=== PATIENT | female | born 1960 | race Caucasian/White ===

== ENCOUNTER 2025-03-23 13:53 | Outpatient (CLI) | payer OTHER, SELFPAY ==
--- NOTE | ~2025-03-23 | MM_ITS ---
EXAMINATION: MM screening oliver BI w damian HISTORY: Screening TECHNIQUE: Craniocaudal and mediolateral oblique 3-D tomosynthesis images were obtained and synthetic 2-D images were generated. CAD analysis was submitted and interpreted. COMPARISON: No prior mammogram is available for comparison at this institution. BREAST PARENCHYMAL COMPOSITION: Not dense: There are scattered areas of fibroglandular density. FINDINGS: There is no evidence of suspicious mass, calcification, or architectural distortion to sugg est malignancy in either breast. There has been no suspicious interval change. IMPRESSION: 1. No mammographic evidence of malignancy. 2. Recommend routine screening mammography in one year. BI-RADS Category 1: Negative Reviewed, dictated and finalized at location A.
--- OUTSIDE RECORDS SUMMARY | 2025-03-23 16:00 | XMS_ITS ---
Author Organization [facility] Address [address] [place] [address] Care Team Providers Care Space Physicist Name Role Phone Radha Hull Primary Care Provider Alexsandra Arreaga [phone] Allergies No Known Allergies REASON FOR VISIT 3 Month Psych F/U & Med Refill Medications Medication SIG (Take, Route, Frequency, Duration) Notes Start Date End Date Status Vitamin D (Ergocalciferol) 96908 UNIT 1 capsule Orally once weekly for 30 days 11/05/2024 Active traZODone HCl 50 MG 1 tablet at bedtime as needed Orally Once a day for 30 days Active Lisinopril 5 MG 1 tablet Orally Once a day for 30 days Please mail to patients home Active Sertraline HCl 100 MG 2 capsule Orally Once a day for 30 days Active Latuda 20 MG 1 tablet in the evening with food Orally Once a day for 30 days Active Social History Sex Assigned At : Social History Observation Description Sex Assigned At Female Encounters Encounter Location Date Provider Diagnosis [address] [place] [address] 03/12/2025 Alexsandra Arreaga Bipolar 1 disorder F31.9 and KATIE (generalized anxiety disorder) F41.1 Assessments Encounter Date Diagnosis (ICD Code) Assessment Notes Treatment Notes Treatment Clinical Notes Section Notes 03/12/2025 Bipolar 1 disorder (ICD-10 - F31.9) Continue current medications. Continue services as scheduled. Labs completed recently. May self-administer medications or be administered own oral medications per [facility] protocols. Provided informed consent with understanding of side effects, adverse effects, risks and benefits as well as alternative treatments as previously discussed and with the above recommended medications & other aspects of the treatment program. Agrees to return sooner if symptoms worsen or suicidal or homicidal ideations occur. 03/12/2025 KATIE (generalized anxiety disorder) (ICD-10 - F41.1) Plan Of Treatment Medication Medication Name Sig Start Date Stop Date Notes Sertraline HCl 100 MG 2 capsule Orally O nce a day for 30 days Latuda 20 MG 1 tablet in the even ing with food Orally Once a day for 30 days Treatment Notes Assessment Notes Bipolar 1 disorder Continue current med ications. Continue services as scheduled. Labs completed recently. May self-administer medications or be administered own oral medications per [facility] protocols. Provided informed consent with understanding of side effects, adverse effects, risks and benefits as well as alternative treatments as previously discussed and with the above recommended medications & other aspects of the treatment program. Agrees to return sooner if symptoms worsen or suicidal or homicidal ideations occur. Next Appt Details Follow Up: 3 Months, Reason: Medication management - can be telehealth appt. Progress Notes * Kate MURCIAB: [birth year] (64 yo F)Acc No.[id number]:03/12/2025 Patient: Matthew FOSS Provider: Norma Arreaga DNP, PMHNP-BC, BOX BUILDER :1960 A ge:64 Y S ex:Female Date:03/12/2025 Address:[address] [place], [place] [id number] Pcp:Radha Hull Subjective: * Chief Complaints: * 3 Month Psych F/U & Med Refill * HPI: I nterim History: Emergency room visit N o. Was hospitalized N o. D epression Screening: PHQ-9 L ittle interest or pleasure in doing things?Not at all F eeling down, depressed, or hopeless N ot at all T rouble falling or staying asleep, or sleeping too much N ot at all F eeling tired or having little energy N ot at all P oor appetite or overeating N ot at all F eeling bad about yourself or that you are a failure, or have let yourself or your family down N ot at all T rouble concentrating on things, such as reading the newspaper or watching television N ot at all M oving or speaking so slowly that other people could have noticed; or the opposite, being so fidgety or restless that you have been moving around a lot more than usual N ot at all T houghts that you would be better off or of hurting yourself in some way N ot at all T otal Score 0 Intervention D epression Screening Findings N egative F ollow-Up for Depression N o Referral necessary, patient involved in behavioral health treatment, Referred to Behavioral Health, Prescribed psychotropic medications S creening: Phillips Suicide Severity Rating Scale (LF) D o you want to initiate with S creener form 1 . Wish to be : Have you wished you were or wished you could go to sleep and not wake up? N o 2 . Suicidal Thoughts: Have you actually had any thoughts of killing yourself? N o 6 . Suicide Behavior Question: Have you ever done anything,started to do anything, or prepared to end your life? N o I nterpretation: L ow Risk P reventative Health and Wellness follow-up: Action Plans for Clinical Quality Measures: B reast Cancer Screening: N ot addressed during this visit. See notes for details. C ervical Cancer Screening: N ot addressed during this visit. See notes for details. C olorectal Cancer Screening: N ot addressed during this visit. See notes for details. H IV Screening: N ot addressed during this visit. See notes for details. . P sych F/U: Patient presents for psychiatric follow-up visit. Changes since last visit?: S tates things have been going good. Getting out more. Things are looking up . Medications are working well. . Coping skills? E xercise and staying busy. Senior center.?. Effectiveness of medications: Y es, patient reports they are effective. Medication Adherence: R eports taking medications as prescribed. Side effects to medications?: D enies side effects to medications. Sleep: A ppropriate sleep. Appetite A ppropriate appetite. Depression (10 = most depressed) D enies. Anxiety (10 = most anxious) D enies. Anger/Irritability (10 is highest): 0 /10. Suicidal ideation: D enies suicidal ideation.. Homicidal ideation: D enies homicidal ideation.. Hallucinations D enies hallucinations, Denies Paranoia.? Medical concerns or hospitalizations? N o changes. . ? Therapy? N o. Goals: C ontinued- Being more active and meeting people. Has been walking and going to senior center. . Are you satisfied with the medication? Y es. A bnormal Involuntary Movement Scale: Denies : Facial and Oral Movements M uscles of Facial Expression 0 - None L ips and Perioral Area 0 - None J aw 0 - None T ongue 0 - None Denies : Extremity Movements U pper (arms, wrists, hands, fingers) 0 - None L ower (legs, knees, ankles, toes) 0 - None Denies : Trunk Movements N megan, Shoulders and hips 0 - None Denies : Global Judgement S everity of abnormal movements overall 0 - None I ncapacitation due to abnormal movements 0 - None P atient's awareness of abnormal movements?0- No Awareness Denies : Dental Status C urrent problems with teeth and/or dentures?No A re dentures usually worn? N o E ndentia N o D o movements disappear with sleep? N o Denies : Subjective Experience . * ROS: P sych ROS: Constitutional D enies. E yes D enies. E ars/Nose/Mouth/Throat D enies. R espiratory D enies. A llergic/Immunologic D enies.?Cardiovascular D enies. G I D enies. G U D enies. M usculoskeletal R eports, S ome aches from restarting exercise.. N eurological D enies. I ntegumentary?Denies. E ndocrine D enies. H ematological/Lymphatic D enies. P sych D enies AH/VH,Reports anxiety,Reports depression, Denies SI/HI. * Medical History: * Surgical History: n megan surgery leg surgery hysterectomy 1992 * Hospitalization/Major Diagno stic Procedure: - complication 1992 * Family History: F ather: alive, Heart problems. M other: alive. 1 brother(s) - healthy. 1 son(s) , 2 daughter(s) - healthy. . * Social History: P rimary Social History: L iving Arrangement L iving Arrangement: Dependent Living , Is this a supportive environment? Yes .. Alcohol Use A lcohol Use Frequency: M onthly or less Illicit Substance Usage I llicit Substance Usage: N o Employment Status E mployment Status: U nemployed Single Question Alcohol Screening H ow may times in the past year have you had (4 for women, or 5 for men) or more drinks in a day? 0 * Medications: T akingtraZODone HCl 50 MG Tablet 1 tablet at bedtime as needed Orally Once a day Lisinopril 5 MG Tablet 1 tablet Orally Once a day , Notes to Pharmacist: Please mail to patients homeVitamin D (Ergocalciferol) 31490 UNIT Capsule 1 capsule Orally once weekly Latuda 20 MG Tablet 1 tablet in the evening with food Orally Once a day Sertraline HCl 100 MG Tablet 2 capsule Orally Once a day Medication List reviewed and reconciled with the patientTaking traZODone HCl 50 MG Tablet 1 tablet at bedtime as needed Orally Once a day Taking Lisinopril 5 MG Tablet 1 tablet Orally Once a day , Notes to Pharmacist: Please mail to patients homeTaking Vitamin D (Ergocalciferol) 59645 UNIT Capsule 1 capsule Orally once weekly Taking Latuda 20 MG Tablet 1 tablet in the evening with food Orally Once a day Taking Sertraline HCl 100 MG Tablet 2 capsule Orally Once a day Medication List reviewed and reconciled with the patient * Allergies: N .K.D.A.no[Allergies Verified] Objective: * Vitals: * Examination: M ental Status Exam: SENSORIUM AND COGNITION Alert , Oriented to Person , Oriented to Place , Oriented to Time , Oriented to Situation. ATTENTION AND CONCENTRATION N o deficits. ATTITUDE AND BEHAVIOR C ooperative , Receptive. MEMORY I mmediate , Recent , Remote. AFFECT B road/Full. MOOD E uthymic. SPEECH QUANTITY A ppropriate. SPEECH QUALITY S pontaneous , Fluent , Appropriate volume.? THOUGHT PROCESS C oherent and goal directed. THOUGHT CONTENT A ppropriate - WNL , No evidence of delusional content , No reports paranoia. LANGUAGE A ppropriate- WNL. SUICIDAL IDEATION D enies suicidal ideation. HOMICIDAL IDEATION D enies homicidal ideation. HALLUCINATIONS D enies hallucinations. INSIGHT F air. JUDGMENT F air. FUND OF KNOWLEDGE F air. ABILITY TO PARTICIPATE IN TREATMENT M oderate. WILLINGNESS TO PARTICIPATE IN TREATMENT M oderate. SIGNIFICANT FINDINGS REGARDING MENTAL STATUS N one. ? Assessment: * Assessment: 1. B ipolar 1 disorder - F31.9 (Primary) 2 . G AD (generalized anxiety disorder) - F41.1 Plan: * Treatment: * Procedure Codes: * Follow Up: 3 Months (Reason: Medication management - can be telehealth appt.) * * Sign off status: Completed true * Provider: Norma Arreaga, NILA, PMHNP-, BOX BUILDER Date: 0 03/12/2025 Generated for Printing/Faxing/eTransmitting on: 0 03/23/2025 04:00 PM CDT History and Physical Notes * HPI (History of Present Illness) Category Sub-Category Detail Notes Category Not es Interim History Was hospitalized No Emergency room visit No Depression Screening PHQ-9 Little inte rest or pleasure in doing things: Not at all Feeling down, depressed, or hopeless: No t at all Trouble falling or staying asleep, or sl eeping too much: Not at all Feeling tired or having little energy: N ot at all Poor appetite or overeating: Not at all Feeling bad about yourself o r that you are a failure, or have let yourself or your family down: Not at all Trouble concentrating on thi ngs, such as reading the newspaper or watching television: Not at all Moving or speaking so slowly that other people could have noticed; or the opposite, being so fidgety or restless that you have been moving around a lot more than usual: Not at all Thoughts that you would be b stevan off or of hurting yourself in some way: Not at all Total Score: 0 Intervention Depression Screening Findings: N egative Follow-Up for Depression: No Referral necessary, patient involved in behavioral health treatment, Referred to Behavioral Health, Prescribed psychotropic medications Abnormal Involuntary Movement Scale Facial and Oral Movements Muscles of Facial Expression: 0- None Lips and Perioral Area: 0- None Jaw: 0- None Tongue: 0- None Extremity Movements Upper (arms, wrists, hands, fingers): 0- None Lower (legs, knees, ankles, toes): 0- No ne Trunk Movements Neck, Shoulders and hips: 0- Non e Global Judgement Severity of abnormal movements overall: 0- None Incapacitation due to abnormal movements : 0- None Patient's awareness of abnormal movement s: 0- No Awareness Dental Status Current problems with teeth and/ or dentures: No Are dentures usually worn?: No Endentia: No Do movements disappear with sleep?: No Subjective Experience Psych F/U Changes since last visit?: State s things have been going good. Getting out more. Things are looking up . Medications are working well. Effectiveness of medications: Yes, patie nt reports they are effective Medication Adherence: Reports taking med ications as prescribed Side effects to medications?: Denies robin e effects to medications Goals: Continued- Being mor e active and meeting people. Has been walking and going to senior center. Coping skills? Exercise and staying busy. Senior center. Sleep: Appropriate sleep Appetite Appropriate appetite Depression (10 = most depressed) Denies Anxiety (10 = most anxious) Denies Anger/Irritability (10 is highest): 0/10 Suicidal ideation: Denies suicidal idea tion. Homicidal ideation: Denies homicidal emir ation. Hallucinations Denies hallucination s, Denies Paranoia Medical concerns or hospitalizations? No changes. Therapy? No Are you satisfied with the medication? Y es Screening Phillips Suicide Sev erity Rating Scale (LF) Do you want to initiate with: Screener form 1. Wish to be : Have you wished you were or wished you could go to sleep and not wake up?: No 2. Suicidal Thoughts: Have you actually had any thoughts of killing yourself?: No 6. Suicide Behavior Question: Have you ever done anything,started to do anything, or prepared to end your life?: No Interpretation:: Low Risk Preventative Health and Wellness follow-up Action Plans for Clinical Quality Measures: Breast Cancer Screening:: Not addressed during this visit. See notes for details. . Cervical Cancer Screening:: Not addressed during this visit. See notes for details. Colorectal Cancer Screening: : Not addressed during this visit. See notes for details. HIV Screening:: Not addressed during thi s visit. See notes for details. Examination Category Sub-Category Detail Notes Category Not es Mental Status Exam SENSORIUM AND COGNITION Alert , Oriented to Person , Oriented to Place , Oriented to Time , Oriented to Situation ATTENTION AND CONCENTRATION No deficits ATTITUDE AND BEHAVIOR Cooperative , Rece ptive MEMORY Immediate , Recent , Remote AFFECT Broad/Full MOOD Euthymic SPEECH QUANTITY Appropriate SPEECH QUALITY Spontaneous , Fluent , Appropriate volume THOUGHT PROCESS Coherent and goal di rected THOUGHT CONTENT Appropriate - WNL , No evidence of delusional content , No reports paranoia SUICIDAL IDEATION Denies suicidal idea tion HOMICIDAL IDEATION Denies homicidal emir ation HALLUCINATIONS Denies hallucination s INSIGHT Fair JUDGMENT Fair FUND OF KNOWLEDGE Fair ABILITY TO PARTICIPATE IN TREATMENT Mode rate WILLINGNESS TO PARTICIPATE IN TREATMENT Moderate SIGNIFICANT FINDINGS REGARDI NG MENTAL STATUS None LANGUAGE Appropriate- WNL
--- OUTSIDE RECORDS SUMMARY | 2025-03-23 16:00 | XMS_ITS | Patient Health Record ---
Author Organization [facility] Address [address] [place] [address] Care Team Providers Care Panel Laminator Name Role Phone Radha Hull Primary Care Provider Alexsandra Arreaga Unavailable [phone] Kelton Norwood Unavailable Allergies No Known Allergies Results Component Value Reference Range Notes CMP 14 Comprehensive Metabol ic Panel* Reviewed date:11/05/2024 12:03:19 PM Interpretation:Abnormal Performing Lab:[facility], [address] [facility], Phone - [phone], Director - Ida Notes/Report: Glucose 117 70-99 mg/dL BUN 15 8-27 mg/dL Creatinine 0.74 0.57-1.00 mg/dL eGFR 91 >59 mL/min/1.73 BUN/Creatinine Ratio 20 12-28 Sodium 141 134-144 mmol/L Potassium 5.1 3.5-5.2 mmol/L Chloride 102 96-106 mmol/L Carbon Dioxide, Total 20 20-29 mmol/L Calcium 9.5 8.7-10.3 mg/dL Protein, Total 7.1 6.0-8.5 g/dL Albumin 4.5 3.9-4.9 g/dL Globulin, Total 2.6 1.5-4.5 g/dL Bilirubin, Total 0.8 0.0-1.2 mg/dL Alkaline Phosphatase 84 44-121 IU/L AST (SGOT) 18 0-40 IU/L ALT (SGPT) 19 0-32 IU/L Lipid Panel* Reviewed date:11/05/2024 12:03:18 PM Interpretation:Abnormal Performing Lab:[facility], [address], [place], Phone - [phone], [facility] Notes/Report: Cholesterol, Total 262 100-199 mg/dL Triglycerides 180 0-149 mg/dL HDL Cholesterol 43 >39 mg/dL VLDL Cholesterol Isaiah 34 5-40 mg/dL LDL Chol Calc (NIH) 185 0-99 mg/dL TSH+Free T4* Reviewed date:11/05/2024 12:03:18 PM Interpretation:Normal Performing Lab:[address], Phone - [phone], Director - [facility] Notes/Report: TSH 1.240 0.450-4.500 uIU/mL T4,Free(Direct) 1.20 0.82-1.77 ng/dL Vitamin D, 25-Hydroxy* Reviewed date:11/05/2024 12:03:18 PM Interpretation:Low Performing Lab:[address], Phone - [phone], Director - [facility] Notes/Report: Vitamin D, 25-Hydroxy 18.0 30.0-100.0 ng/mL Vitamin D deficiency has been defined by the Sp[employer] of Medicine and an Endocrine Society practice guideline as a level of serum 25-OH vitamin D less than 20 ng/mL (1,2). The Endocrine Society went on to further define vitamin D insufficiency as a level between 21 and 29 ng/mL (2). 1. IOM ([employer] of Medicine). 2010. Dietary reference intakes for calcium and D. [place]: The National Academies Press. 2. Shukri MF, Keenan NC, Bobby SANDS, et al. Evaluation, treatment, and prevention of vitamin D deficiency: an Endocrine Society clinical practice guideline. JCEM. 2010; 96(7):1911-30. CBC With Differential/Platel et* Reviewed date:11/05/2024 12:03:18 PM Interpretation:High Performing Lab:[address], Phone - [phone], Director - [facility] Notes/Report: WBC 9.1 3.4-10.8 x10E3/uL RBC 5.08 3.77-5.28 x10E6/uL Hemoglobin 15.2 11.1-15.9 g/dL Hematocrit 46.8 34.0-46.6 % MCV 92 79-97 fL MCH 29.9 26.6-33.0 pg MCHC 32.5 31.5-35.7 g/dL RDW 13.0 11.7-15.4 % Platelets 369 150-450 x10E3/uL Neutrophils 63 Not Estab. % Lymphs 28 Not Estab. % Monocytes 7 Not Estab. % Eos 2 Not Estab. % Basos 0 Not Estab. % Neutrophils (Absolute) 5.6 1.4-7.0 x10E3/uL Lymphs (Absolute) 2.6 0.7-3.1 x10E3/uL Monocytes(Absolute) 0.7 0.1-0.9 x10E3/uL Eos (Absolute) 0.2 0.0-0.4 x10E3/uL Baso (Absolute) 0.0 0.0-0.2 x10E3/uL Immature Granulocytes 0 Not Estab. % Immature Grans (Abs) 0.0 0.0-0.1 x10E3/uL Vitamin B12* Reviewed date:11/05/2024 11:59:59 AM Interpretation:Normal Performing Lab:[facility] [place], [address] [facility], Phone - [phone], Director - [facility] Notes/Report: Vitamin B12 510 700-8191 pg/mL Hemoglobin A1c* Reviewed date:11/05/2024 11:59:59 AM Interpretation:Abnormal Performing Lab:[facility] [place], [address] [facility], Phone - [phone], Director - [facility] Notes/Report: Hemoglobin A1c 7.0 4.8-5.6 % . Prediabetes: 5.7 - 6.4 Diabetes: >6.4 Glycemic control for adults with diabetes: <7.0 Reason For Referral Reason Would like to be louie luated for housing. Diagnosis 1 Bipolar 1 disorder ( F31.9) Referral Organization [facility] Referring Provider First Name Alexsandra Referring Provider Last Name Gibson Referring Provider Speciality Psychiatry Referred Provider Specialty [facility]al [facility] Clinical Notes Ryann White 11/05/2024 12:44:27 PM >HN and client discussed filling out the [facility] applications. Client also applied on her own for medicaid and insurance through the [facility]. I informed the client we could look into the outcome of this online application to see if she was approved. Client was also told informed that the HN could see if the department at [place] who assists with insurance through the state could assist us. Client and HN plan to address this early net week.Christopher Kristina L 11/09/2024 02:51:29 PM >HN emailed the [facility] department to see if there was any information to share regarding her insurance through [facility]., Ryann White 11/17/2024 09:41:06 AM >Matthew called the HN and from that phone call, an appointment was scheduled with the client for at 10am., Ryann White 11/19/2024 03:11:08 PM > Application for [facility] filled out and submitted on 11-19-24. Referral Priority Routine Medications Medication SIG (Take, Route, Frequency, Duration) Notes Start Date End Date Status traZODone HCl 50 MG 1 tablet at [...] Once a day for 30 days Active Vitamin D (Ergocalciferol) 1.25 MG (77311 UT) TAKE 1 CAPSULE BY MOUTH EVERY WEEK for 28 Active Social History Tobacco Use: Social History Observation Description Date Details (start date - stop date) Never Smoker NA - NA Sex Assigned At : Social History Observation Description Sex Assigned At Female Tobacco Control (Standard) Question Answer Notes Tobacco use: Nonsmoker Problems Problem Type SNOMED Code ICD Code Onset Dates Problem Status W/U Status Risk Notes Problem Type II diabetes mellitus without complication (273944802) Diabetes (E11.9) Active confirmed Problem Bipolar 1 disorder (565224747) Bipolar 1 disorder (F31.9) Active confirmed Problem Vitamin D deficiency (53723319) Vitamin D deficiency (E55.9) Active confirmed Problem Generalized anxiety disorder (59870122) KATIE (generalized anxiety disorder) (F41.1) Active confirmed Problem Essential hypertension (28942273) Essential hypertension (I10) Active confirmed Vital Signs Heart Rate 63 /min 11/04/2024 Respiratory Rate 16 /min 11/04/2024 Blood pressure diastolic 82 mm Hg 11/04/2024 Oximetry 96 % 11/04/2024 Height 63 in 11/04/2024 Blood pressure systolic 122 mm Hg 11/04/2024 Weight 213 lbs 11/04/2024 BMI 37.73 kg/m2 11/04/2024 Encounters Encounter Location Date Provider Diagnosis [address] [place] [address] 10/30/2024 Alexsandra Arreaga Nutritional counseling Z71.3 ; Bipolar 1 disorder F31.9 and KATIE (generalized anxiety disorder) F41.[address] [place] [address] 11/04/2024 Radha Hull Nutritional counseling Z71.3 ; Establishing care with new doctor, encounter for Z71.89 ; Bipolar 1 disorder F31.9 ; Screening for breast cancer Z12.39 and Essential hypertension I10 [facility] [address] [address] 11/19/2024 Kelton Norwood [address] [place] [address] 12/08/2024 Alexsandra Arreaga Bipolar 1 disorder F31.9 and KATIE (generalized anxiety disorder) F41.[address] [place] [address] 03/12/2025 Alexsandra Arreaga Bipolar 1 disorder F31.9 and KATIE (generalized anxiety disorder) F41.[address] [facility] [address] 11/05/2024 Radha Hull Vitamin D deficiency E55.9 and Diabetes E11.9 [facility] [address] [place] [address] 01/18/2025 Radha Hull Assessments Encounter Date Diagnosis (ICD Code) Assessment Notes Treatment Notes Treatment Clinical Notes Section Notes 10/30/2024 Bipolar 1 disorder (ICD-10 - F31.9) 10/30/2024 Nutritional counseling (ICD-10 - Z71.3) 11/04/2024 Nutritional counseling (ICD-10 - Z71.3) 11/05/2024 Diabetes (ICD-10 - E11.9) 11/05/2024 Vitamin D deficiency (ICD-10 - E55.9) 12/08/2024 Bipolar 1 disorder (ICD-10 - F31.9) 11/04/2024 Establishing care with new doctor, encounter for (ICD-10 - Z71.89) 03/12/2025 Bipolar 1 disorder (ICD-10 - F31.9) Continue current medications. Continue services as scheduled. Labs completed recently. May self-administer medications or be administered own oral medications per [place] protocols. Provided informed consent with understanding of side effects, adverse effects, risks and benefits as well as alternative treatments as previously discussed and with the above recommended medications & other aspects of the treatment program. Agrees to return sooner if symptoms worsen or suicidal or homicidal ideations occur. 03/12/2025 KATIE (generalized anxiety disorder) (ICD-10 - F41.1) 12/08/2024 KATIE (generalized anxiety disorder) (ICD-10 - F41.1) 11/04/2024 Bipolar 1 disorder (ICD-10 - F31.9) 10/30/2024 KATIE (generalized anxiety disorder) (ICD-10 - F41.1) 11/04/2024 Screening for breast cancer (ICD-10 - Z12.39) 11/04/2024 Essential hypertension (ICD-10 - I10) 12/08/2024 Other Continue curren t medications. Continue services as scheduled. Labs completed recently. May self-administer medications or be administered own oral medications per [facility] protocols. Provided informed consent with understanding of side effects, adverse effects, risks and benefits as well as alternative treatments as previously discussed and with the above recommended medications & other aspects of the treatment program. Agrees to return sooner if symptoms worsen or suicidal or homicidal ideations occur. Plan Of Treatment No Information Insurance Providers Payer Name Payer Address Payer Phone Subscriber Number Group Number Insured Name Patient Relationship to Insured Coverage Start Date Coverage End Date [facility] Att Claims Department [address] [place] [address] [phone] [id number] Matthew Cruz Self - patient is the insured 5 MEDICAID [address] [place] [address] [id number] Arletteiatami roeMatthew Self - patient is the insured 4 5 Medical (General) History Medical History History ICD Code hypertension cervical spinal fusion Surgical History Surgery Date(Month/Year) neck surgery leg surgery hysterectomy 1992 Hospitalization History Reason Date(Month/Year) - complication 1993
--- OUTSIDE RECORDS SUMMARY | 2025-03-23 16:00 | XMS_ITS ---
Author Organization [facility] Address [address] [place] [address] Care Team Providers Care Site Operations Manager Name Role Phone Radha Hull Primary Care Provider [phone] GibsonAlexsandra Unavailable [phone] REASON FOR VISIT VM regarding lab order Social History Sex Assigned At : Social History Observation Description Sex Assigned At Female Encounters Encounter Location Date Provider Diagnosis [facility] [address] [place] [address] 01/18/2025 Radha Hull Plan Of Treatment No Information Progress Notes * Angelo MURCIAiDOB: [birth year] (64 yo F)Acc No.[id number]:01/18/2025 Patient: Matthew FOSS :1960 A ge:64 Y S ex:Female Address:[address] [place] [address], [phone] * true * Date: Generated for Osmar mccollum/Maile/eTransmitting on: 0 03/23/2025 04:00 PM CDT
--- OUTSIDE RECORDS SUMMARY | 2025-03-23 16:00 | XMS_ITS | Continuity of Care Document ---
Author Organization [facility] Address [address] [place] [address] Phone Care Team Providers Care Dance Coach Name Role Phone Naina Campos Unavailable Unavailable Allergies, Adverse Reactions, Alerts Substance Reaction Status Criticality No Known Allergies Active No Inform ation Medications Medication Instructions Dosage Effective Dates (start - stop) Status Comments lisinopril 5 mg tablet take 1 (ONE) tablet by mouth every day for blood pressure - Active Patient will be transitioning to new provider in [facility] Vitamin D2 1,250 mcg (50,000 unit) capsule Take 1 capsule by mouth every Saturday for 8 weeks - Active Please deliver t o patient's house Zoloft 100 mg tablet take 1 tablet by oral route 2 times every day 100 MG - Active Latuda 20 mg tablet take 1 tablet by oral route every day with food (at least 350 calories) 20 MG - Active trazodone 100 mg tablet take 1 tablet by oral route every day at bedtime 100 MG - Active Procedures Procedure Date PREV VISIT, EST, AGE 40-64 ROUTINE VENIPUNCTURE COMPLETE CBC W/AUTO DIFF WBC COMPREHEN METABOLIC PANEL GLYCATED HEMOGLOBIN TEST VITAMIN B-12 ASSAY OF VITAMIN D LIPID PANEL PREV VISIT, NEW, AGE 40-64 ROUTINE VENIPUNCTURE COMPLETE CBC W/AUTO DIFF WBC COMPREHEN METABOLIC PANEL ACUTE HEPATITIS PANEL LIPID PANEL Advance Directives Directive Yes / No Effective Date File Name No Information Encounters Encounter Description Practice Location Reason(s) For Visit Diagnoses Date Provider Providers Copied on Encounter [facility], [address] [place] [address], [id number], tel:[phone] [facility] No Information [address] [place]. [address] [place] [address], [id number] [address] [place] [address], [id number] , [place]. [phone] [facility], [address] [place] [address], [id number], [place] tel:[phone] [facility] No Information 4 [place]. [address] [place] [address], [id number] [address] [place] [address], [id number] , [place]. [phone] [facility], [address] [place] [address], [id number], tel:[phone] [facility] Elevated Blood pressure (chief complaint) Body mass index [BMI] 39.0-39.9, adultType 2 diabetes mellitus without complicationsV itamin D deficiencyHype rtensionPerson consulting for explanation of exam or test findingsHyperc holesterolemia 4 [place]. [address] [place] [address], [id number] [address] [place] [address], [id number] , [place]. [phone] Referring Provider: Naina Ritter, [address] [place] [address] [id number] [facility], [place], [address] . tel:[phone] PREV VISIT, EST, AGE 40-64 [facility], [address] [place] [address], [id number], tel:[phone] [facility] BP Check (chief complaint) Body mass index [BMI] 40.0-44.9, adultEncntr screen mammogram for malignant neoplasm of breastEncounte r for general adult medical exam w/o abnormal findingEncount er for screening for diabetesBipola r disorder, unspecifiedEnc ounter for screening for lipoid disordersOther usp (current) drug therapy 4 [place]. [address] [place] [address], [id number] [address] [place] [address], [id number] , [place]. tel:[phone] Referring Provider: Naina Ritter, [address] [place] [address] [id number] [place] [address], [id number] . tel:[phone] PREV VISIT, NEW, AGE 40-64 [facility], [address] [place] [address], [id number], tel:[phone] [address] [place] [address] (chief complaint) Body mass index (BMI) 40.0-44.9, adultAnxiety depressionEnco unter for general adult medical exam w/o abnormal findingEncount er for screening for HIVEncounter for screening for other viral diseasesOther abnormal finding on diagnostic imaging of breastEncounte r for screening for malignant neoplasm of colonObesity 3 Ismael Rincon. [address] [place] [address], [id number] [address] [place] [address], [id number] , [place]. [phone] Referring Provider: Mckenzie Guevara, [address] [place] [address] [id number] [place] [address], [id number] . tel:[phone] Family History Family Member Type Diagnosis Age At Onset Problem Family history of Cancer, th yroid Problem Family history of Coronary a rtery disease Problem Family history of Hypertensi on Payers Payer name Insurance type Covered republican ID Authoriza tion(s) [facility] [id number] Social History Type Description Quantity Date Captured Comments Alcohol Use Details Unknown Caffeine Use Details Unknown Tobacco Use Status No Information Smoking Status No Information Sex Female Sexual Orientation Straight or heterosexual Gender Identity Female Chief Complaint And Reason For Visit No Information Reason For Referral Reason For Referral No Information Plan Of Treatment Date Type Action Status Goal ASCVD 10 year ri sk. Due on due Goal Dilated eye exam . Due on due Goal Tdap. Due on due Goal Pneumococcal vac cine. Due on due Goal Hemoglobin A1C. Due on due Goal Foot exam. Due on due Goal Urine microalbum in. Due on due Goal GFR. Due on due Goal Depression scree maddison. Due on due Goal Dental exam. Due on due Goal Influenza vaccin e. Due on due Goal Td vaccine. Due on due Goal Zoster vaccine. Due on due Goal FIT-DNA. Due on due Goal Unhealthy drug u se screening. Due on due Goal Diabetes screeni ng. Due on due Goal Hepatitis C scre ening. Due on due Goal Zoster vaccine ( 1st). Due on due Goal HPV. Due on due Goal HPV, high+low-ri sk. Due on due Goal Pap/HPV testing. Due on due Goal Lipid panel. Due on due Goal Diabetes screeni ng. Due on due Goal Hemoglobin A1C. Due on due Goal Dental exam. Due on due Goal Urine microalbum in. Due on due Goal GFR. Due on due Goal Dilated eye exam . Due on due Goal Foot exam. Due on due Goal ASCVD 10 year ri sk. Due on due Goal Td vaccine. Due on due Goal HPV, high+low-ri sk. Due on due Goal HPV. Due on due Goal Hepatitis C scre ening. Due on due Goal FIT-DNA. Due on due Goal Pap/HPV testing. Due on due Goal Tdap. Due on due Goal Zoster vaccine ( 1st). Due on due Goal Unhealthy drug u se screening. Due on due Goal Zoster vaccine. Due on due Goal Lipid panel. Due on due Goal Influenza vaccin e. Due on due Goal Depression scree maddison. Due on due Goal Pneumococcal vac cine. Due on due Goal Influenza vaccin e. Due on due Goal Dental exam. Due on due Goal Urine microalbum in. Due on due Goal Dilated eye exam . Due on due Goal GFR. Due on due Goal ASCVD 10 year ri sk. Due on due Goal Hemoglobin A1C. Due on due Goal Foot exam. Due on due Goal Pneumococcal vac cine. Due on due Goal Depression scree maddison. Due on due Goal Hepatitis C scre ening. Due on due Goal Unhealthy drug u se screening. Due on due Goal Pap/HPV testing. Due on due Goal HPV, high+low-ri sk. Due on due Goal Td vaccine. Due on due Goal FIT-DNA. Due on due Goal Lipid panel. Due on due Goal HPV. Due on due Goal Diabetes screeni ng. Due on due Goal Zoster vaccine. Due on due Goal Tdap. Due on due Goal Zoster vaccine ( ). Due on due Goal Dietary manageme nt education, guidance, and counseling completed Goal Depression scree maddison. Due on due Goal Lipid panel. Due on due Goal Pap/HPV testing. Due on due Goal Influenza vaccin e. Due on due Goal Zoster vaccine ( ). Due on due Goal Diabetes screeni ng. Due on due Goal Tdap. Due on due Goal FIT-DNA. Due on due Goal Unhealthy drug u se screening. Due on due Goal Td vaccine. Due on due Goal Zoster vaccine. Due on due Goal HPV, high+low-ri sk. Due on due Goal HPV. Due on due Goal Hepatitis C scre ening. Due on due Goal Dietary manageme nt education, guidance, and counseling completed Goal FOBT. Due on due Goal Td vaccine. Due on due Goal HPV, high+low-ri sk. Due on due Goal HPV. Due on due Goal Pap/HPV testing. Due on due Goal Colonoscopy. Due on 023 due Goal Tdap. Due on due Goal FIT-DNA. Due on due Goal Diabetes screeni ng. Due on due Goal Influenza vaccin e. Due on due Goal Zoster vaccine. Due on due Goal Hepatitis C scre ening. Due on due Goal Unhealthy drug u se screening. Due on due Goal CT-Colonography. Due on due Goal Zoster vaccine ( 1st). Due on due Goal Depression scree maddison. Due on due Goal Sigmoidoscopy. Due on due Goal FIT. Due on due Goal Dietary manageme nt education, guidance, and counseling completed Referral Ordered: DX MAMMO INCL CAD UNI ordered Future Order: Radiology Order DX MAMMO INCL CAD UNI ([id number]), Collected on: New History Of Present Illness Encounter Date Complaint History Of Prese nt Illness Elevated Blood pressure Patient is presented today to discuss labs from previous appointment, patient also saw Theresa today and had elevated BP at visit (SBP 150s). Patient BP was taken in office with Shantel VOSS and BP was normal upon vital check. Tatiana Mike SANIYA BP Check Patient is prese nt today for BP check due to being elevated at last psych appointment. Tatiana Mike MICHAEL Etienne-BCPatient presents for annual wellness visit and BP check. Screenings due:Mammogram- last was summer 2022. No family history.Other screenings:Had hysterectomy in 1992 and was told no need for PAPs. No history of abnormal PAPs.Colorectal cancer screening- did Cologuard testing about 1 year ago. Next recommended 2025.Immunizations due:None. Reports having tetanus within last 5 years.Other providers involved in patients care include:Psychiatrist: [facility]. Church at [facility]: last seen about 1 year ago. No one [facility]: last seen about 1 year ago. establish care Patient presents to establish care, patient reports no acute concerns today.Patient reports having an abnormal mammogram and needing further testing. Patient brought print out of reading with her and it states patient has a 4mm mass left 3:00 posterior depth, favored intramammary lymph node. No prior mammogram to compare. Patient is on multiple medications for anxiety and depression concerns. These were manged by a provider in . Patient reports having an appt scheduled with Theresa in September and reports she currently has enough medication refills to last until then. Discussed with patient to contact the clinic if any concerns arise. Patient denies alcohol, tobacco, or illicit substance use, Reports had a dental cleaning and vision screening in the last few months. Reports she currently lives with her daughter. Immunizations - Schedule to administer Zoster and Prevnar 23 in office Preventative care: Colonoscopy age - Colaguard order Mammogram - Schedule further testing. Hepatitis/HIV - Complete with lab Functional Status Date Functional Assessmen t No Information Instructions Date Instruction Additional Infor bamkalina Eat more fruits, veg etables and fiber to help lower cholesterol.Buy whole grain breads and cereals instead of white bread and pastries.Use olive oil or canola oil when you cook. Try cholesterol lowering spreads such as Benecol or Take Control.Bake, broil, grill or steam foods instead of frying them.Limit high fat meats such as hot dogs and sausage.Consider fish, skinless poultry and soy products such as tofu instead of high fat meats. Choose low-fat or fat-free milk and dairy products. Related to Hypercholesterolemia Take medication ever y day as prescribed.You are encouraged to limit salt/sodium to less than 1,500 mg a day.Work your way up to getting at least 30 minutes of exercise at least 5 days a weekLimit alcohol intake.Be sure to eat plenty of fruits, vegetables, and low fat dairy products.Work on decreasing saturated fats/total fats in your diet.Do not smoke. Smoking increases risk for heart attack and stroke.Call the office immediately or seek medical care if blood pressure is extremely high (180/110 or higher), or if you have a severe headache, blurry vision, or chest pain. Related to Hypertension Patient instructed t o eat a variety of foods and to limit carbohydrates. Carbohydrates raise blood sugar. Carbohydrates are found in sugar, breads and cereals, fruit, starchy vegetables, milk and yogurt.Increase activity as able. Activity can lower blood sugars. Related to Type 2 diabetes mellitus without complications Giving encouragement to exercise Related to Body mass index [BMI] 39.0-39.9, adult Dietary management e ducation, guidance, and counseling Related to Body mass index [BMI] 39.0-39.9, adult Make sure you keep a ll your mental health appointments and take all medications as directed. Let your provider know if you are having side effects or other unpleasant symptoms with the medication. Let your provider know if you are not able to take the medication for any reason, such as insurance changes or financial limitations. There may be other medications you could try. Some medications can be dangerous if stopped suddenly.Resources for mental health crisis/emergency/urgent need for help:[facility]apid Access Unit at [facility] open 24/06Text or call [phone] for mental health hotlineBo[facility] open 24/06 for [facility]-ins [address] [place] [address] or call [phone] Related to Bipolar disorder, unspecified Giving encouragement to exercise Related to Body mass index [BMI] 40.0-44.9, adult Dietary management e ducation, guidance, and counseling Related to Body mass index [BMI] 40.0-44.9, adult Discussed the findin gs with the patient Encouraged regular breast exams and the importance of having this further testing completedEncouraged patient to follow up if any new changes occur or she finds anything new on her breast self exams. Related to Other abnormal finding on diagnostic imaging of breast Encouraged patient t o keep all appointments with psychiatry and counselors.Keep taking your medications as prescribed.Be physically active. 30 minutes of exercise each day is good for your body and mind. Do relaxation exercises 10 to 20 minutes a day.Get enough sleep.Eat a balanced diet. Spend time with family and friends. Related to Anxiety depression Discussed the import ance of daily exercise to remain healthy physically and mentally. Continue to add the walking into your daily routine as we discussed. Discussed caloric intake recommendations based on BMI that would help achieve a safe weight loss and healthy BMI. Related to Obesity Patient encouraged t o wear safety belt when in an automobile. Patient encouraged on a heart healthy diet and routine moderate exercise 150 min/wk.Sunscreen use is encouraged regardless of temperature and level of sun exposure if outside. Appropriate clothing should be worn while outside to protect the face, head, and body. Safety in the home including smoke detectors, clear walking pathways, adequate lighting. Ensure water temperature is appropriate before submerging appendages or body. Patient encouraged to develop healthy sleep habits. Patient encouraged to follow routine health screening, obtain their vaccines including a yearly flu vaccine. Maintain healthcare appointments including primary care, dental, and vision along with any specialist patient may have. Patient acknowledged education and reported understanding of teaching. Related to Encounter for general adult medical exam w/o abnormal finding Management of mental health treatment Related to Adjustment disorder with mixed anxiety and depressed mood Dietary management e ducation, guidance, and counseling Related to Body mass index [BMI] 40.0-44.9, adult Assessments Type Assessment Date No Information Patient Care Teams Name Effective Dates (start - stop) Status Members No Information
--- OUTSIDE RECORDS SUMMARY | 2025-03-23 16:01 | XMS_ITS ---
Author Organization [facility] Address [address] [place] [address] Care Team Providers Care Bass Guitar Teacher Name Role Phone Radha Hull Primary Care Provider [phone] Alexsandra Arreaga [phone] Allergies No Known Allergies REASON FOR VISIT 4 week F/U Medications Medication SIG (Take, Route, Frequency, Duration) Notes Start Date End Date Status Lisinopril 5 MG 1 tablet Orally Once a day for 30 days Please mail to patients home Active Vitamin D (Ergocalciferol) 79160 UNIT 1 capsule Orally once weekly for 30 days 11/05/2024 Active Sertraline HCl 100 MG 2 capsule Orally Once a day for 30 days Active traZODone HCl 50 MG 1 tablet at bedtime as needed Orally Once a day for 30 days Active Latuda 20 MG 1 tablet in the evening with food Orally Once a day for 30 days Active Social History Tobacco Use: Social History Observation Description Date Details (start date - stop date) Never Smoker NA - NA Sex Assigned At : Social History Observation Description Sex Assigned At Female Tobacco Control (Standard) Question Answer Notes Tobacco use: Nonsmoker Encounters Encounter Location Date Provider Diagnosis [address] [place] [address] 12/08/2024 Alexsandra Arreaga Bipolar 1 disorder F31.9 and KATIE (generalized anxiety disorder) F41.1 Assessments Encounter Date Diagnosis (ICD Code) Assessment Notes Treatment Notes Treatment Clinical Notes Section Notes 12/08/2024 Bipolar 1 disorder (ICD-10 - F31.9) 12/08/2024 KATIE (generalized anxiety disorder) (ICD-10 - F41.1) 12/08/2024 Other Continue curren t medications. Continue services as scheduled. Labs completed recently. May self-administer medications or be administered own oral medications per [place] protocols. Provided informed consent with understanding of side effects, adverse effects, risks and benefits as well as alternative treatments as previously discussed and with the above recommended medications & other aspects of the treatment program. Agrees to return sooner if symptoms worsen or suicidal or homicidal ideations occur. Plan Of Treatment Medication Medication Name Sig Start Date Stop Date Notes Sertraline HCl 100 MG 2 capsule Orally O nce a day for 30 days Latuda 20 MG 1 tablet in the even ing with food Orally Once a day for 30 days Treatment Notes Assessment Notes Other Continue current med ications. Continue services as scheduled. Labs completed recently. May self-administer medications or be administered own oral medications per [place] protocols. Provided informed consent with understanding of [...] can be telehealth appt. 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 Was hospitalized N o. D epression Screening: PHQ-9 L ittle interest or pleasure in doing things?Not at all F eeling down, depressed, or hopeless S everal days T rouble falling or staying asleep, or sleeping too much N ot at all F eeling tired or having little energy N ot at all P oor appetite or overeating N ot at all F eeling bad about yourself or that you are a failure, or have let yourself or your family down S everal days T rouble concentrating on things, such as [...] N ot at all T otal Score 2 I nterpretation M inimal Depression Intervention D epression Screening Findings P ositive F ollow-Up for Depression N o Referral necessary, patient involved in behavioral health treatment, Referred to Behavioral Health, Prescribed psychotropic medications D o Not Use CSSRS Interpretation and Follow Up Plan: CSSRS Interpretation and Follow Up Plan. CSSRS Interpretation and Follow Up Plan C SSRS Screen documented using SF Y es M oderate or High risk requires selection of a follow up plan C SSRS No/Low: intervention not needed at this time S creening: [place] Suicide Severity Rating Scale (LF) D o you want to initiate with S creener form 1 . Wish to be : Have you wished you were or wished you could go to sleep and not wake up? N o 2 . Suicidal Thoughts: Have you actually had any thoughts of killing yourself? N o 6 . Suicide Behaviour: Have you ever done anything,started to do [...] visit. Changes since last visit?: S tates that she is doing quite well. Moods have improved. Has been walking and getting out. Feels moods have been better than what they have been in a few years. . Coping skills? E xercise and staying busy. . Effectiveness of medications: Y es, patient reports they are effective. Medication Adherence: R eports taking medications as prescribed. Side effects to medications?: D enies side effects to medications. Sleep: A ppropriate sleep. Appetite A ppropriate appetite. Depression (10 = most depressed) . Anxiety (10 = most anxious) I ntermittent- 05/11. Feels it is improving and and managing it better. . Anger/Irritability (10 is highest): 0 /10. Suicidal ideation: D enies suicidal ideation.. Homicidal ideation: D enies homicidal ideation.. Hallucinations D enies hallucinations, Denies Paranoia.? Medical concerns or hospitalizations? N o changes. . ? Therapy? N o. Goals: B eing more active and meeting people. Has been [...] ematological/Lymphatic D enies. P sych D enies AH/,Reports anxiety,Reports depression, Denies SI/HI. * Medical History: [...] Employment Status E mployment Status: U nemployed T obacco Use: T obacco Control (Standard) T obacco use: N onsmoker * Medications: T akingLatuda 20 MG Tablet 1 tablet in the evening with food Orally Once a day traZODone HCl 50 MG Tablet 1 tablet at bedtime as needed Orally Once a day Sertraline HCl 100 MG Tablet 2 capsule Orally Once a day Lisinopril 5 MG Tablet 1 tablet Orally Once a day , Notes to Pharmacist: Please mail to patients homeVitamin D (Ergocalciferol) 07544 UNIT Capsule 1 capsule Orally once weekly Medication List reviewed and reconciled with the patientTaking Latuda 20 MG Tablet 1 tablet in the evening with food Orally Once a day Taking traZODone HCl 50 MG Tablet 1 tablet at bedtime as needed Orally Once a day Taking Sertraline HCl 100 MG Tablet 2 capsule Orally Once a day Taking Lisinopril 5 MG Tablet 1 tablet Orally Once a day , Notes to Pharmacist: Please mail to patients homeTaking Vitamin D (Ergocalciferol) 51184 UNIT Capsule 1 capsule Orally once weekly Medication List reviewed and reconciled with the [...] anxiety disorder) - F41.1 Plan: * Treatment: 2. O thers Notes: Continue current medications. Continue services as scheduled. Labs completed recently. May self-administer medications or be administered own oral medications per [place] protocols. Provided informed consent with understanding of side effects, adverse effects, risks and benefits as well as alternative treatments as previously discussed and with the above recommended medications & other aspects of the treatment program. Agrees to return sooner if symptoms worsen or suicidal or homicidal ideations occur. * Procedure Codes: * Follow Up: 3 Months (Reason: Medication management - can be telehealth appt.) * * WAL SPECIALIST Sign off status: Completed true * Provider: Norma Arreaga DNP, PMHNP-, CARTON MAKING MACHINE OPERATOR Date: 12/08/2024 Generated for Printing/Faxing/eTransmitting on: 0 03/23/2025 04:00 PM CDT History and Physical Notes * HPI (History of Present Illness) Category Sub-Category Detail Notes Category Not es Interim History Was hospitalized No Emergency room visit No Depression Screening PHQ-9 Little inte rest or pleasure in doing things: Not at all Feeling down, depressed, or hopeless: Se veral days Trouble falling or staying asleep, or sl eeping too much: Not at all Feeling tired or having little energy: N ot at all Poor appetite or overeating: Not at all Feeling bad about yourself o r that you are a failure, or have let yourself or your family down: Several days Trouble concentrating on thi ngs, such as [...] some way: Not at all Total Score: 2 Interpretation: Minimal Depression Intervention Depression Screening Findings: P ositive Follow-Up for Depression: No Referral necessary, patient [...] F/U Changes since last visit?: State s that she is doing quite well. Moods have improved. Has been walking and getting out. Feels moods have been better than what they have been in a few years. Effectiveness of medications: Yes, lilia nt reports they are effective Medication Adherence: Reports taking med ications as prescribed Side effects to medications?: Denies robin e effects to medications Goals: Being more active an d meeting people. Has been walking and going to senior center. Coping skills? Exercise and staying busy. Sleep: Appropriate sleep Appetite Appropriate appetite Depression (10 = most depressed) 4/10 Anxiety (10 = most anxious) Intermittent - 6/10. Feels it is improving and and managing it better. Anger/Irritability (10 is highest): 0/10 Suicidal ideation: Denies suicidal idea tion. Homicidal ideation: Denies homicidal emir ation. Hallucinations Denies hallucination s, Denies Paranoia Medical concerns or hospitalizations? No changes. Therapy? No Are you satisfied with the medication? Y es Screening [place] Suicide Sev erity Rating Scale (LF) Do [...] end your life?: No Interpretation:: Low Risk Do Not Use CSSRS Interpretation and Follow Up Plan CSSRS Interpretation and Follow Up Plan CSSRS Screen documented using SF: Yes Moderate or High risk requir es selection of a follow up plan: CSSRS No/Low: intervention not needed at this time [facility] follow-up Action Plans [...]
== END 2025-03-23 13:54 | disposition home or self-care (01) ==
PROVIDERS: PCP Clinical Nurse Specialist; Visit Provider Nurse Practitioner Family
DX: Z12.31 Encounter for screening mammogram for malignant neoplasm of breast (principal)
CPT/HCPCS: 77063; 77067

== ENCOUNTER 2025-04-24 10:23 | Outpatient (CLI) | payer OTHER, SELFPAY ==
--- OUTSIDE RECORDS SUMMARY | 2025-04-24 10:25 | XMS_ITS | Patient Health Record ---
Author Organization formerly [facility] Address [address] [place] [address] Care Team Providers Care Pattern Keeper Name Role Phone Radha Hull Primary Care Provider [phone] Alexsandra Arreaga Unavailable [phone] Kimberly Blair Unavailable Kelton Norwood Unavailable Allergies No Known Allergies Results Component Value Reference Range Notes Hemoglobin A1c* Reviewed date:11/05/2024 11:59:59 AM Interpretation:Abnormal Performing Lab:[facility], [address] [facility], Phone - [phone], Director - Ida Notes/Report: Hemoglobin A1c 7.0 4.8-5.6 % . Prediabetes: 5.7 - 6.4 Diabetes: >6.4 Glycemic control for adults with diabetes: <7.0 Vitamin B12* Reviewed date:11/05/2024 11:59:59 AM Interpretation:Normal Performing Lab:[facility], [address] [facility], Phone - [phone], Director - PhDWalden Behavioral Carecarolyn Notes/Report: Vitamin B12 636 363-6512 pg/mL CBC With Differential/Platel et* Reviewed date:11/05/2024 12:03:18 PM Interpretation:High Performing Lab:[facility], [address] [facility] [facility], Phone - [phone], Director - PhDGary Notes/Report: WBC 9.1 3.4-10.8 x10E3/uL RBC 5.08 [...] Immature Grans (Abs) 0.0 0.0-0.1 x10E3/uL Vitamin D, 25-Hydroxy* Reviewed date:11/05/2024 12:03:18 PM Interpretation:Low Performing Lab:[facility] [address] [facility], Phone - [phone], Director - Ida Notes/Report: Vitamin D, 25-Hydroxy 18.0 30.0-100.0 ng/mL Vitamin D deficiency has been defined by the [place] of Medicine and an Endocrine Society practice guideline as a level of serum 25-OH vitamin D less than 20 ng/mL (1,2). The Endocrine Society went on to further define vitamin D insufficiency as a level between 21 and 29 ng/mL (2). 1. IOM ([place] of Medicine). 2010. Dietary reference intakes for calcium and D. [place]: The National Academies Press. 2. Shukri MF, Keenan NC, Bobby SANDS, et al. Evaluation, treatment, and prevention of vitamin D deficiency: an Endocrine Society clinical practice guideline. JCEM. 2010; 96(7):1911-30. TSH+Free T4* Reviewed date:11/05/2024 12:03:18 PM Interpretation:Normal Performing Lab:[facility], [address] [facility], Phone - [phone], Director - [facility] Notes/Report: TSH 1.240 0.450-4.500 uIU/mL T4,Free(Direct) 1.20 0.82-1.77 ng/dL Lipid Panel* Reviewed date:11/05/2024 12:03:18 PM Interpretation:Abnormal Performing Lab:[facility], [address] [facility], Phone - [phone], Director - [facility] Notes/Report: Cholesterol, Total 262 100-199 mg/dL Triglycerides 180 0-149 mg/dL HDL Cholesterol 43 >39 mg/dL VLDL Cholesterol Isaiah 34 5-40 mg/dL LDL Chol Calc (NIH) 185 0-99 mg/dL CMP 14 Comprehensive Metabol ic Panel* Reviewed date:11/05/2024 12:03:19 PM Interpretation:Abnormal Performing Lab:[facility] [place], [address] [facility], Phone - [phone], Director - [facility] Notes/Report: Glucose 117 70-99 mg/dL BUN 15 [...] 0-40 IU/L ALT (SGPT) 19 0-32 IU/L Reason For Referral Reason Would like to be louie luated for housing. Diagnosis 1 Bipolar 1 disorder ( F31.9) Referral Organization [facility] Referring Provider First Name Alexsandra Referring Provider Last Name Gibson Referring Provider Speciality Psychiatry Referred Provider Specialty Behavioral [facility] Clinical Notes Ryann White 11/05/2024 12:44:27 PM >HN and client discussed filling out the [place] and [facility] applications. Client also applied on her own for medicaid and insurance through the [facility]. I informed the client we could look into the outcome of this online application to see if she was approved. Client was also told informed that the HN could see if the department at [place] who assists with insurance through the [facility] could assist us. Client and HN plan to address this early net week.Christopher Kristina L 11/09/2024 02:51:29 PM >HN emailed the [facility] department to see if there was any information to share regarding her insurance through [facility]., Ryann White 11/17/2024 09:41:06 AM >Matthew called the HN and from that phone call, an appointment was scheduled with the client for at 10am.Christopher Kristina L 11/19/2024 03:11:08 PM > Application for [facility] filled out and submitted on 11-19-24. Referral Priority Routine Medications Medication SIG (Take, Route, Frequency, Duration) Notes Start Date End Date Status traZODone HCl 50 MG 1 tablet at bedtime as needed Orally Once a day for 30 days Active Lisinopril 5 MG 1 tablet Orally Once a day for 30 days Please mail to patients home Active Vitamin D (Ergocalciferol) 1.25 MG (05410 UT) TAKE 1 CAPSULE BY MOUTH EVERY WEEK for 28 Active Sertraline HCl 100 MG 2 capsule [...] Problem Type II diabetes mellitus without complication (814823528) Diabetes (E11.9) Active confirmed Problem Bipolar 1 disorder (029444447) Bipolar 1 disorder (F31.9) Active confirmed Problem Vitamin D deficiency (56697702) Vitamin D deficiency (E55.9) Active confirmed Problem Generalized anxiety disorder (92393997) KATIE (generalized anxiety disorder) (F41.1) Active confirmed Problem Essential hypertension (10927720) Essential hypertension (I10) Active confirmed Vital Signs Heart Rate 63 /min 11/04/2024 Respiratory Rate 16 /min 11/04/2024 Blood pressure diastolic 82 mm Hg 11/04/2024 Oximetry 96 % 11/04/2024 Height 63 in 11/04/2024 Blood pressure systolic 122 mm Hg 11/04/2024 Weight 213 lbs 11/04/2024 BMI 37.73 kg/m2 11/04/2024 Encounters Encounter Location Date Provider Diagnosis [address] [place] [address] 10/30/2024 Alexsandra Arreaga Nutritional counseling Z71.3 ; Bipolar 1 disorder F31.9 and KATIE (generalized anxiety disorder) F41.[address] [place] [address] 11/04/2024 Radha Hull Nutritional counseling Z71.3 ; Establishing care with new doctor, encounter for Z71.89 ; Bipolar 1 disorder F31.9 ; Screening for breast cancer Z12.39 and Essential hypertension I10 [facility] [address] [place] [address] 11/19/2024 Kelton Norwood [address] [place] [address] 12/08/2024 Alexsandra Arreaga Bipolar 1 disorder F31.9 and KATIE (generalized anxiety disorder) F41.[address] [place] [address] 03/12/2025 Alexsandra Arreaga Bipolar 1 disorder F31.9 and KATIE (generalized anxiety disorder) F41.[address] [place] [address] 11/05/2024 Radha Hull Vitamin D deficiency E55.9 and Diabetes E11.9 [facility] [address] [place] [address] 01/18/2025 Radha Hull [facility] [place] [address] 04/12/2025 Kimberly Blair Vitamin D deficiency E55.9 Assessments Encounter Date Diagnosis (ICD Code) Assessment [...] or be administered own oral medications per [place] protocols. Provided informed consent with understanding of side effects, adverse effects, risks and benefits as well as alternative treatments as previously discussed and with the above recommended medications & other aspects of the treatment program. Agrees to return sooner if symptoms worsen or suicidal or homicidal ideations occur. 04/12/2025 Vitamin D deficiency (ICD-10 - E55.9) 03/12/2025 KATIE (generalized anxiety disorder) (ICD-10 - [...] or be administered own oral medications per [place] protocols. Provided informed consent with understanding of [...] Insured Coverage Start Date Coverage End Date [facility] Claims Department [address] [place] [address] [phone] [id number] Arlettemstami roe Matthew Self - patient is the insured 5 MEDICAID [address] [place] [address] [id number] [facility]Matthew Self - patient is the insured 4 5 Medical (General) History Medical History History ICD Code hypertension cervical spinal fusion Surgical History Surgery Date(Month/Year) neck surgery leg surgery hysterectomy 1992 Hospitalization History Reason Date(Month/Year) - complication 1992
--- OUTSIDE RECORDS SUMMARY | 2025-04-24 10:25 | XMS_ITS | Continuity of Care Document ---
Author Organization [facility] Address [address] [place] [address] Phone Care Team Providers Care Latent Fingerprint Examiner Name Role Phone Naina Campos Unavailable Unavailable Allergies, Adverse Reactions, Alerts Substance Reaction Status Criticality No Known Allergies Active No Inform ation Medications Medication Instructions Dosage Effective Dates (start - stop) Status Comments lisinopril 5 mg tablet take 1 (ONE) tablet by mouth every day for blood pressure - Active Patient will be transitioning to new provider in [facility] Vitamin D2 1,250 mcg (50,000 unit) capsule [...] Date Provider Providers Copied on Encounter [facility], [address] [place] [address], [id number], tel:[phone] [facility] No Information 4 Stone Chew. [address] [place] [address], [id number] [address] [place] [address], [id number] , [place]. [phone] [facility], [address] [place] [address], [id number], [place] tel:[phone] [facility] No Information 4 Stone Chew. [address] [place] [address], [id number] [address] [place] [address], [id number] , [place]. [phone] [facility], [address] [place] [address], [id number], tel:[phone] [facility] Elevated Blood pressure (chief complaint) Body mass index [BMI] 39.0-39.9, adultType 2 diabetes mellitus without complicationsV itamin D deficiencyHype rtensionPerson consulting for explanation of exam or test findingsHyperc holesterolemia 4 Stone Chew. [address] [place] [address], [id number] [address] [place] [address], [id number] , [place]. [phone] Referring Provider: Naina Ritter, [address] [place] [address] [id number] [facility], [place], [address] . tel:[phone] PREV VISIT, EST, AGE 40-64 [facility], [address] [place] [address], [id number], tel:[phone] [facility] BP Check (chief complaint) Body mass index [BMI] 40.0-44.9, adultEncntr screen mammogram for malignant neoplasm of breastEncounte r for general adult medical exam w/o abnormal findingEncount er for screening for diabetesBipola r disorder, unspecifiedEnc ounter for screening for lipoid disordersOther fdc (current) drug therapy 4 Stone Chew. [address] [place] [address], [id number] [address] [place] [address], [id number] , [place]. tel:[phone] Referring Provider: Naina Ritter, [address] [place] [id number] [place] [address], [id number] . tel:[phone] PREV VISIT, NEW, AGE 40-64 [facility], [address] [place] [address], [id number], tel:[phone] [address] [place] [address] (chief complaint) Body mass index (BMI) 40.0-44.9, adultAnxiety depressionEnco unter for general adult medical exam w/o abnormal findingEncount er for screening for HIVEncounter for screening for other viral diseasesOther abnormal finding on diagnostic imaging of breastEncounte r for screening for malignant neoplasm of colonObesity 3 Ismael Rincon. [address] [place] [address], [id number] [address] [place] [address], [id number] , [place]. [phone] Referring Provider: Mckenzie Guevara, [address] [place] [id number] [place] [address], [id number] . tel:[phone] Family History Family Member Type Diagnosis Age At Onset Problem Family history of Cancer, th yroid Problem Family history of Coronary a rtery disease Problem Family history of Hypertensi on Payers Payer name Insurance type Covered republican ID Authoriza tion(s) [facility] [id number] Social History Type Description Quantity Date Captured Comments Alcohol Use Details Unknown Caffeine Use Details Unknown Tobacco Use Status No Information Smoking Status No Information Sex Female Sexual Orientation Straight or heterosexual Gender Identity Female Chief Complaint And Reason For Visit No Information Reason For Referral Reason For Referral No Information Plan Of Treatment Date Type Action Status Goal Td vaccine. Due on 24 due Goal Pneumococcal vac cine. Due on due Goal Hemoglobin A1C. Due on due Goal Foot exam. Due on due Goal Tdap. Due on due Goal Urine microalbum in. Due on due Goal GFR. Due on due Goal Influenza vaccin e. Due on due Goal Depression scree maddison. Due on due Goal Dental exam. Due on due Goal ASCVD 10 year ri sk. Due on due Goal Dilated eye exam . Due on due Goal Diabetes screeni ng. Due on due Goal Zoster vaccine. Due on due Goal FIT-DNA. Due on due Goal HPV. Due on due Goal HPV, high+low-ri sk. Due on due Goal Pap/HPV testing. Due on due Goal Zoster vaccine ( 1st). Due on due Goal Unhealthy drug u se screening. Due on due Goal Hepatitis C scre ening. Due on due Goal Lipid panel. Due on due Goal Pap/HPV testing. Due on due Goal Tdap. Due on due Goal HPV, high+low-ri sk. Due on due Goal HPV. Due on due Goal Hepatitis C scre ening. Due on due Goal Hemoglobin A1C. Due on due Goal Td vaccine. Due on due Goal Diabetes screeni ng. Due on due Goal Dental exam. Due on due Goal Urine microalbum in. Due on due Goal GFR. Due on due Goal Foot exam. Due on due Goal ASCVD 10 year ri sk. Due on due Goal Dilated eye exam . Due on due Goal Zoster vaccine ( 1st). Due on due Goal Unhealthy drug u se screening. Due on due Goal Zoster vaccine. Due on due Goal FIT-DNA. Due on due Goal Lipid panel. Due on due Goal Pneumococcal vac cine. Due on due Goal Influenza vaccin e. Due on due Goal Depression scree maddison. Due on due Goal Influenza vaccin e. Due on due Goal Foot exam. Due on due Goal ASCVD 10 year ri sk. Due on due Goal Dilated eye exam . Due on due Goal GFR. Due on due Goal Pneumococcal vac cine. Due on due Goal Depression scree maddison. Due on due Goal Dental exam. Due on due Goal Urine microalbum in. Due on due Goal Hemoglobin A1C. Due on due Goal Hepatitis C scre ening. Due on due Goal Unhealthy drug u se screening. Due on due Goal HPV, high+low-ri sk. Due on due Goal Td vaccine. Due on due Goal Pap/HPV testing. Due on due Goal FIT-DNA. Due on due Goal Lipid panel. Due on due Goal HPV. Due on due Goal Diabetes screeni ng. Due on due Goal Zoster vaccine. Due on due Goal Tdap. Due on due Goal Zoster vaccine ( ). Due on due Goal Dietary manageme nt education, guidance, and counseling completed Goal Zoster vaccine ( ). Due on [...] C scre ening. Due on due Goal Pap/HPV testing. Due on due Goal Influenza vaccin e. Due on due Goal Depression scree maddison. Due on due Goal Lipid panel. Due on 024 due Goal Dietary manageme nt education, guidance, and counseling completed Goal CT-Colonography. Due on due Goal Zoster vaccine ( ). Due on due Goal Depression scree maddison. Due on due Goal Sigmoidoscopy. Due on due Goal FIT. Due on due Goal FOBT. Due on due Goal Td vaccine. Due on 23 due Goal HPV, high+low-ri sk. Due on [...] u se screening. Due on due Goal Dietary manageme nt education, guidance, and counseling completed Referral Ordered: DX MAMMO INCL CAD UNI ordered Future Order: Radiology Order DX MAMMO INCL CAD UNI ([id number]), Collected on: New History Of Present Illness [...] Dr. Church at [facility]: last seen about 1 year ago. [...] No Information Instructions Date Instruction Additional Infor john Eat more fruits, veg etables and fiber [...] to Type 2 diabetes mellitus without complications Dietary management e ducation, guidance, and counseling Related to Body mass index [BMI] 39.0-39.9, adult Giving encouragement to exercise Related to Body [...] crisis/emergency/urgent need for help:Rapid Access Unit at [facility] open 24/06Text or call [phone] for mental health hotlineSt. [facility] open [facility]/06 for walk-ins [address] [place] [address] or call [phone] Related to Bipolar disorder, unspecified Dietary management e ducation, guidance, and counseling Related to Body mass index [BMI] 40.0-44.9, adult Giving encouragement to exercise Related to Body [...]
[2025-04-24 11:20] LABS: Basophils Percent Auto 0.3 % (0.2-1.2); Eosinophils Absolute Auto 0.3 K/mm3 (0-0.3); Eosinophils Percent Auto 3.3 % (0-4.4); Hematocrit 43.3 % (37.0-47.0); Hemoglobin 13.9 g/dL (12.0-15.0); Immature Granulocyte Absolute 0.03 K/mm3 (0.00-0.031); Immature Granulocyte Percent A 0.4 % (0-0.5); Lymphocytes Percent Auto 27.7 % (18.3-44.2); Mean Corpuscular HGB Conc 32.1 g/dl (32-36); Mean Corpuscular Hemoglobin 29.3 pg (26-34); Mean Corpuscular Volume 91.2 fl (80-100); Mean Platelet Volume 10.8 fl (7.4-10.4); Monocytes Absolute Auto 0.5 K/mm3 (0.1-0.6); Monocytes Percent Auto 6.7 % (2.6-8.5); Neutrophils Absolute Auto 4.7 K/mm3 (1.3-6.7); Neutrophils Percent Auto 61.6 % (45.5-73.1); Platelet Count Result 302 k/mm3 (150-375); Red Blood Count 4.75 M/mm3 (4.2-5.4); Red Cell Distribution Width 13.2 % (11.5-14.5); White Blood Count 7.6 K/mm3 (4.5-10.0)
[2025-04-24 11:29] LABS: Hemoglobin A1C 6.6 % (<5.7)
[2025-04-24 11:32] LABS: Alanine Aminotransferase 22 U/L (6-35); Albumin Level 4.2 g/dL (3.5-5.1); Alkaline Phosphatase 62 U/L (38-126); Anion Gap 7 mmol/L (4-12); Aspartate Amino Transferase 25 U/L (14-36); Bilirubin,Total 1.1 mg/dL (0.2-1.3); Blood Urea Nitrogen 19 mg/dL (7-17); Calcium 8.6 mg/dL (8.4-10.2); Carbon Dioxide 25 mmol/L (22-30); Chloride 107 mmol/L (98-107); Cholesterol 240 mg/dL (0-200); Estimated Glomerular Filt Rate > 60; Glucose 136 mg/dL (65-110); HDL Direct 58 mg/dL; Potassium 4.3 mmol/L (3.4-5.0); Sodium 139 mmol/L (137-145); Triglycerides 134 mg/dL (<150)
[2025-04-24 11:42] LABS: LDL Cholesterol Direct 142 mg/dL
[2025-04-24 12:02] LABS: Thyroid Stimulating Hormone 0.912 uIU/mL (0.465-4.680)
[2025-04-24 12:13] LABS: Creatinine Urine 139.7 mg/dL
[2025-04-24 12:17] LABS: MALB Creatinine Ratio 19.8 mg/g (0-30); Microalbumin Urine Random 27.7 mg/L (0-16.7)
== END 2025-04-24 10:24 | disposition home or self-care (01) ==
LOC: ANHLAB 10:23
PROVIDERS: PCP Clinical Nurse Specialist; Visit Provider Clinical Nurse Specialist
DX: G25.81 Restless legs syndrome (principal); Z13.228 Encounter for screening for other metabolic disorders; Z13.220 Encounter for screening for lipoid disorders; R73.01 Impaired fasting glucose; E55.9 Vitamin D deficiency, unspecified; I10 Essential (primary) hypertension
CPT/HCPCS: 36415; 80053; 80061; 82043; 82306; 82607; 82728; 83036; 84443; 85025

== ENCOUNTER 2025-05-13 08:37 | Outpatient (CLI) | payer OTHER, SELFPAY ==
--- NOTE | ~2025-05-13 | XR_ITS ---
XR cervical spine 4-5V Ordering provider: YUNG Pak History: . Z98.890 - Other specified postprocedural states . Comparison: None. FINDINGS: VERTEBRAL BODIES: Postoperative changes at the level of C4, C5 and C6. Otherwise, Normal height and a lignment. No visible fracture or subluxation. The dens is intact. DISK SPACES: Disc spacer at the level of C4-C5 and C5-C6. Bilateral narrowing of the foramina. PARASPINOUS SOFT TISSUES: No prevertebral soft tissue swelling. IMPRESSION: No acute osseous abnormality cervical spine. Postoperative changes. Multilevel bilateral narrowing of the intervertebral foramina. Reviewed, dictated and finalized at location A.
--- OUTSIDE RECORDS SUMMARY | 2025-05-13 08:51 | XMS_ITS | Patient Health Record ---
Author Organization [facility] Address [address] [place] [address] Care Team Providers Care Pressure Tester Operator Name Role Phone Radha Hull Primary Care Provider [phone] Alexsandra Arreaga Unavailable [phone] Kimberly Blair Unavailable Kelton Norwood Unavailable [phone] Allergies No Known Allergies Results Component Value Reference Range Notes Hemoglobin A1c* Reviewed date:11/05/2024 11:59:59 AM Interpretation:Abnormal Performing Lab:[facility], [address] [facility], Phone - [phone], Director - Ida Notes/Report: Hemoglobin A1c 7.0 4.8-5.6 % . Prediabetes: 5.7 - 6.4 Diabetes: >6.4 Glycemic control for adults with diabetes: <7.0 Vitamin B12* Reviewed date:11/05/2024 11:59:59 AM Interpretation:Normal Performing Lab:[facility], [address] [facility], Phone - [phone], Director - PhDFranklinwhitesburg arh hospitalcarolyn Notes/Report: Vitamin B12 [phone] pg/mL CBC With Differential/Platel et* Reviewed date:11/05/2024 12:03:18 PM Interpretation:High Performing Lab:[facility], [address] [facility], Phone - [phone], Director - PhDGary Notes/Report: WBC 9.1 3.4-10.8 [...] 25-Hydroxy* Reviewed date:11/05/2024 12:03:18 PM Interpretation:Low Performing Lab:[facility] [place] [address] [facility], Phone - [phone], Director - Ida Notes/Report: Vitamin D, 25-Hydroxy 18.0 30.0-100.0 ng/mL Vitamin D deficiency has been defined by the [place] of [employer] and an Endocrine Society practice guideline as a level of serum 25-OH vitamin D less than 20 ng/mL (1,2). The Endocrine Society went on to further define vitamin D insufficiency as a level between 21 and 29 ng/mL (2). 1. IOM ([place] of [employer]). 2010. Dietary reference intakes for calcium and D. [place]: The National Academies Press. 2. Shukri MF, Keenan [place], Bobby SANDS, et al. Evaluation, treatment, and prevention of vitamin D deficiency: an Endocrine Society clinical practice guideline. JCEM. 2010; 96(7):1911-30. TSH+Free T4* Reviewed date:11/05/2024 12:03:18 PM Interpretation:Normal Performing Lab:[facility], [address] [facility], Phone - [phone], Director - [facility] Notes/Report: TSH 1.240 0.450-4.500 uIU/mL T4,Free(Direct) 1.20 0.82-1.77 ng/dL Lipid Panel* Reviewed date:11/05/2024 12:03:18 PM Interpretation:Abnormal Performing Lab:[facility], [address] [facility], Phone - [phone], Director - [facility] Notes/Report: Cholesterol, Total 262 100-199 mg/dL Triglycerides 180 0-149 mg/dL HDL Cholesterol 43 >39 mg/dL VLDL Cholesterol Isaiah 34 5-40 mg/dL LDL Chol Calc (NIH) 185 0-99 mg/dL CMP 14 Comprehensive Metabol ic Panel* Reviewed date:11/05/2024 12:03:19 PM Interpretation:Abnormal Performing Lab:[facility] [place], [address] [facility], Phone - [phone], Director - [facility] Notes/Report: Glucose 117 70-99 mg/dL BUN [...] Bipolar 1 disorder ( F31.9) Referral Organization [facility] Referring Provider First Name Alexsandra Referring Provider Last Name Gibson Referring Provider Speciality Psychiatry Referred Provider Specialty Behavioral [facility] Clinical Notes Ryann White 11/05/2024 12:44:27 PM >HN and client discussed filling out the [place] [facility] applications. Client also applied on her own for medicaid and insurance through the [facility]. I informed the client we could look into the outcome of this online application to see if she was approved. Client was also told informed that the HN could see if the department at [facility] who assists with insurance through the [facility] could assist us. Client and HN plan to address this early net week.Christopher Kristina L 11/09/2024 02:51:29 PM >HN emailed the [facility] department to see if there was any information to share regarding her insurance through [facility]., Ryann White 11/17/2024 09:41:06 AM >Matthew called the HN and from that phone call, an appointment was scheduled with the client for at 10am.Christopher Kristina L 11/19/2024 03:11:08 PM > Application for [facility] filled out and submitted on [...] home Active Vitamin D (Ergocalciferol) 1.25 MG (40381 UT) TAKE 1 CAPSULE BY MOUTH EVERY [...] Problem Type II diabetes mellitus without complication (288928454) Diabetes (E11.9) Active confirmed Problem Bipolar 1 disorder (188006068) Bipolar 1 disorder (F31.9) Active confirmed Problem Vitamin D deficiency (03412832) Vitamin D deficiency (E55.9) Active confirmed Problem Generalized anxiety disorder (92949558) KATIE (generalized anxiety disorder) (F41.1) Active confirmed Problem Essential hypertension (55801837) Essential hypertension (I10) Active confirmed Vital Signs Heart Rate 63 /min 11/04/2024 Respiratory Rate 16 /min 11/04/2024 Blood pressure diastolic 82 mm Hg 11/04/2024 Oximetry 96 % 11/04/2024 Height 63 in 11/04/2024 Blood pressure systolic 122 mm Hg 11/04/2024 Weight 213 lbs 11/04/2024 BMI 37.73 kg/m2 11/04/2024 Encounters Encounter Location Date Provider Diagnosis [address] [place] [address] 10/30/2024 Alexsandra Arreaga Nutritional counseling Z71.3 ; Bipolar 1 disorder F31.9 and KATIE (generalized anxiety disorder) F41.[address] [place] [address] 11/04/2024 Radha Hull Nutritional counseling Z71.3 ; Establishing care with new doctor, encounter for Z71.89 ; Bipolar 1 disorder F31.9 ; Screening for breast cancer Z12.39 and Essential hypertension [facility] [address] [address] 11/19/2024 Kelton Norwood [place] [address] [place] [address] 12/08/2024 Alexsandra Arreaga Bipolar 1 disorder F31.9 and KATIE (generalized anxiety disorder) F41.[address] [place] [address] 03/12/2025 Alexsandra Arreaga Bipolar 1 disorder F31.9 and KATIE (generalized anxiety disorder) F41.[address] [place] [address] 11/05/2024 Radha Hull Vitamin D deficiency E55.9 and Diabetes E11.9 [facility] [address] [place] [address] 01/18/2025 Radha Hull [facility] [place] [address] 04/12/2025 Kimberly Blair Vitamin D deficiency E55.9 [...] or be administered own oral medications per [facility] protocols. Provided informed consent with understanding of [...] or be administered own oral medications per [facility] protocols. Provided informed consent with understanding of [...] Insured Coverage Start Date Coverage End Date [facility] Claims Department [address] [place] [address] [phone] [id number] Arletteaztami roe Matthew Self - patient is the insured 5 MEDICAID [address] [place] [address] [id number] [facility] Self - patient is the insured 4 5 Medical (General) History Medical History History ICD Code hypertension cervical spinal fusion Surgical History Surgery Date(Month/Year) neck surgery leg surgery hysterectomy 1992 Hospitalization History Reason Date(Month/Year) - complication 1992
--- OUTSIDE RECORDS SUMMARY | 2025-05-13 08:51 | XMS_ITS | Continuity of Care Document ---
Author Organization [facility] Address [address] [place] [address] Phone Care Team Providers Care Detective And Intelligence Analyst Name Role Phone Naina Campos Unavailable Unavailable Allergies, Adverse Reactions, Alerts Substance Reaction Status Criticality No Known Allergies Active No Inform ation Medications Medication Instructions Dosage Effective Dates (start - stop) Status Comments lisinopril 5 mg tablet take 1 (ONE) tablet by mouth every day for blood pressure - Active Patient will be transitioning to new provider in [facility] Vitamin D2 1,250 mcg (50,000 unit) capsule [...] Date Provider Providers Copied on Encounter [facility], [address] [place] [address], [id number], tel:[phone] [facility] No Information 4 Stone Chew. [address] [place] [address], [id number] [address] [place] [address], [id number] , [place]. [phone] [facility], [address] [place] [address], [id number], [place] tel:[phone] [facility] No Information 4 Stone Chew. [address] [place] [address], [id number] [address] [place] [address], [id number] , [place]. [phone] [facility], [address] [place] [address], [id number], tel:[phone] [facility] Elevated Blood pressure (chief complaint) Body mass index [BMI] 39.0-39.9, adultType 2 diabetes mellitus without complicationsV itamin D deficiencyHype rtensionPerson consulting for explanation of exam or test findingsHyperc holesterolemia 4 Stone Chew. [address] [place] [address], [id number] [address] [place] [address], [id number] , [place]. [phone] Referring Provider: Naina Ritter, [address] [place] [address] [id number] [facility], [place], [address] . tel:[phone] PREV VISIT, EST, AGE 40-64 [facility], [address] [place] [address], [id number], tel:[phone] [facility] BP Check (chief complaint) Body mass index [BMI] 40.0-44.9, adultEncntr screen mammogram for malignant neoplasm of breastEncounte r for general adult medical exam w/o abnormal findingEncount er for screening for diabetesBipola r disorder, unspecifiedEnc ounter for screening for lipoid disordersOther intermediate card tender (current) drug therapy 4 Stone Chew. [address] [place] [address], [id number] [address] [place] [address], [id number] , [place]. tel:[phone] Referring Provider: Naina Ritter, [address] [place] [id number] [place] [address], [id number] . tel:[phone] PREV VISIT, NEW, AGE 40-64 [facility], [address] [place] [address], [id number], tel:[phone] [address] [place] [address] (chief complaint) Body mass index (BMI) 40.0-44.9, adultAnxiety depressionEnco unter for general adult medical exam w/o abnormal findingEncount er for screening for HIVEncounter for screening for other viral diseasesOther abnormal finding on diagnostic imaging of breastEncounte r for screening for malignant neoplasm of colonObesity 3 Ismael Rincon. [address] [place] [address], [id number] [address] [place] [address], [id number] , [place]. [phone] Referring Provider: Mckenzie Guevara, [address] [place] [address] [id number] [place] [address], [id number] . tel:[phone] Family History Family Member Type Diagnosis Age At Onset Problem Family history of Cancer, th yroid Problem Family history of Coronary a rtery disease Problem Family history of Hypertensi on Payers Payer name Insurance type Covered democrat ID Authoriza tion(s) [facility] [id number] Social History Type Description Quantity Date Captured Comments Alcohol Use Details Unknown Caffeine Use Details Unknown Tobacco Use Status No Information Smoking Status No Information Sex Female Sexual Orientation Straight or heterosexual Gender Identity Female Chief Complaint And Reason For Visit No Information Reason For Referral Reason For Referral No Information Plan Of Treatment Date Type Action Status Goal Lipid panel. Due on 024 due Goal Pneumococcal vac cine. Due on due Goal ASCVD 10 year ri sk. Due on due Goal Dilated eye exam . Due on due Goal Tdap. Due on due Goal Hemoglobin A1C. Due on due Goal Foot exam. Due on due Goal Urine microalbum in. Due on due Goal GFR. Due on due Goal Depression scree maddison. Due on due Goal Dental exam. Due on 024 due Goal Influenza vaccin e. Due on due Goal Unhealthy drug u se screening. Due on due Goal Hepatitis C scre ening. Due on due Goal Zoster vaccine ( ). Due on due Goal HPV. Due on due Goal HPV, high+low-ri sk. Due on due Goal Pap/HPV testing. Due on due Goal Td vaccine. Due on 24 due Goal Zoster vaccine. Due on due Goal FIT-DNA. Due on due Goal Diabetes screeni ng. Due on due Goal HPV. Due on due Goal Hepatitis C scre ening. Due on due Goal FIT-DNA. Due on due Goal HPV, high+low-ri sk. Due on due Goal Pap/HPV testing. Due on due Goal Tdap. Due on due Goal Zoster vaccine ( 1st). Due on due Goal Unhealthy drug u se screening. Due on due Goal Zoster vaccine. Due on due Goal Influenza vaccin e. Due on due Goal Depression scree maddison. Due on due Goal Pneumococcal vac cine. Due on due Goal Lipid panel. Due on due Goal Urine microalbum in. [...] Influenza vaccin e. Due on due Goal Urine microalbum in. Due on due Goal Dilated eye exam . Due on due Goal GFR. Due on due Goal Dental exam. Due on due Goal ASCVD 10 year ri sk. Due on due Goal Hemoglobin A1C. Due on due Goal Foot exam. Due on due Goal Pneumococcal vac cine. Due on due Goal Depression scree maddison. Due on due Goal Zoster vaccine ( 1st). Due on due Goal Tdap. Due on due Goal Zoster vaccine. Due on due Goal Lipid panel. Due on due Goal FIT-DNA. Due on due Goal Td vaccine. Due on due Goal HPV, high+low-ri sk. Due on due Goal Pap/HPV testing. Due on due Goal Unhealthy drug u se screening. Due on due Goal Hepatitis C scre ening. Due on due Goal HPV. Due on due Goal Diabetes screeni ng. Due on due Goal Dietary manageme nt education, guidance, and counseling completed Goal Unhealthy drug u se screening. Due on due Goal Td vaccine. Due on due Goal Zoster vaccine. Due on due Goal HPV, high+low-ri sk. Due on due Goal HPV. Due on due Goal Hepatitis C scre ening. Due on due Goal Pap/HPV testing. Due on due Goal Influenza vaccin e. Due on due Goal FIT-DNA. Due on due Goal Tdap. Due on due Goal Diabetes screeni ng. Due on due Goal Zoster vaccine ( 1st). Due on due Goal Lipid panel. Due on 024 due Goal Depression scree maddison. Due on due Goal Dietary manageme nt education, guidance, and counseling completed Goal Colonoscopy. Due on 023 due Goal Pap/HPV testing. Due on due Goal HPV. Due on due Goal HPV, high+low-ri sk. Due on due Goal Td vaccine. Due on 23 due Goal FOBT. Due on due Goal Unhealthy drug u se screening. Due on due Goal Hepatitis C scre ening. Due on due Goal Zoster vaccine. Due on due Goal Influenza vaccin e. Due on due Goal Diabetes screeni ng. Due on due Goal FIT-DNA. Due on due Goal Tdap. Due on due Goal FIT. Due on due Goal Sigmoidoscopy. Due on due Goal Depression scree maddison. Due on due Goal Zoster vaccine ( ). Due on due Goal CT-Colonography. Due on due Goal Dietary manageme nt education, guidance, and counseling completed Referral Ordered: DX MAMMO INCL CAD UNI ordered Future Order: Radiology Order DX MAMMO INCL CAD UNI ([id number]), Collected on: New History Of Present Illness [...] in patients care include:Psychiatrist: [facility]. Church at [facility]: last seen about 1 year ago. No [...] crisis/emergency/urgent need for help:Rapid Access Unit at [facility] open 24/06Text or call [phone] for mental health hotlineFre[facility] open 24/06 for walk-ins [address] [place] [address] or call [phone] Related to Bipolar disorder, unspecified Dietary management [...]
== END 2025-05-13 08:38 | disposition home or self-care (01) ==
PROVIDERS: PCP Clinical Nurse Specialist; Visit Provider Clinical Nurse Specialist
DX: M48.02 Spinal stenosis, cervical region (principal); Z98.890 Other specified postprocedural states
CPT/HCPCS: 72050